=== PATIENT | female | born 1980 | race Caucasian/White ===

== ENCOUNTER 2020-10-27 17:01 | Emergency (ER) | payer OTHER ==
[~2020-10-27] VITALS: Ht 154.9 cm; Wt 49.9 kg
[2020-10-27] MEDS ORDERED: ATIVAN1 M1 PO (17:37)
[2020-10-27] MEDS ORDERED: ZOLOFT50 MG PO (17:37)
[2020-10-27] MEDS ORDERED: ALLEGRA ALLERG180 MG PO (18:12)
[2020-10-27] MEDS ORDERED: MEDROLPACK PO (18:12)
== END 2020-10-27 21:28 | disposition home or self-care (01) ==
LOC: ER 17:01
DX: R21 Rash and other nonspecific skin eruption (principal)

== ENCOUNTER 2025-07-09 12:07 | Emergency (ER) | payer OTHER ==
[~2025-07-09] VITALS: Ht 154.9 cm; Wt 54.4 kg
[~2025-07-09 12:07] MED LIST: ALLEGRA ALLERG180 MG PO; ATIVAN1 M1 PO; MEDROLPACK PO; ZOLOFT50 MG PO
[2025-07-09] MEDS ORDERED: ALBUTEROL SULFATE 3 ML/2.5 MG AMPUL.NEB IH SCH (13:30)
[2025-07-09] MEDS ORDERED: METHYLPREDNISOLONE SOD SUCC 125 MG VIAL IM STA (13:30)
[2025-07-09 16:31] LABS: BASO % 0.3 % (0.1-1.2); EOS # 0.10 (0.04-0.54); EOS % 0.7 % (0.7-7.0); LYMPH # 3.51 (1.18-3.74); LYMPH % 26.1 % (19.3-53.1); MEAN PLATELET VOLUME 10.10 fl (9.4-12.4); MONO # 0.86 (0.24-0.82); MONO % 6.4 % (4.7-12.5); NEUT # 8.88 (1.56-6.13); NEUT % 66.1 % (34.0-71.1); RED CELL DISTRIBUTION WIDTH 13.2 % (11.6-14.4)
[2025-07-09 16:38] LABS: COVID-19 AG NEGATIVE (NEGATIVE)
[2025-07-09 16:45] LABS: ERYTHROCYTE SEDIMENTATION RATE 26 mm/hr (0-20)
[2025-07-09 17:00] LABS: ALT/SGPT 19 U/L (12-78); AST/SGOT 16 U/L (15-37); BILIRUBIN TOTAL 0.66 mg/dL (0.3-1.2); BUN CREA RATIO 10 (7.0-25.0); CREATININE SERUM 0.68 mg/dL (0.55-1.02); GFR 93.99; GLOBULINA 4.1 G/DL (2.4-3.5); GLUCOSE FASTING 124 mg/dL (65-100); OSMOLALITY SERUM 284 MOSM/KG (275-295)
[2025-07-09] MEDS ORDERED: ALBUTEROL2.5 MG/3 M IH (18:44)
[2025-07-09] MEDS ORDERED: ZITHROMAX500 MG PO (18:44)
[2025-07-09] MEDS ORDERED: BUDESONIDE0.5 MG/2 M IH (18:44)
== END 2025-07-09 22:54 | disposition home or self-care (01) ==
LOC: ER 12:08
PROVIDERS: Physician Assistant Medical
DX: J03.80 Acute tonsillitis due to other specified organisms (principal); J45.901 Unspecified asthma with (acute) exacerbation; Z20.822 Contact with and (suspected) exposure to COVID-19